=== PATIENT | female | born 1950 | race Two or more races ===

== ENCOUNTER 2019-01-12 15:53 | Emergency (ER) | payer OTHER ==
[~2019-01-12] VITALS: Ht 152.4 cm; Wt 52.6 kg
[2019-01-12] MEDS ORDERED: SYNTHROID100 MCG (16:18)
[2019-01-12] MEDS ORDERED: CETAPHIL237 ML TOP (17:26)
[2019-01-12] MEDS ORDERED: ECZEMA ANTI-I28.3 GM TOP (17:26)
== END 2019-01-12 17:40 | disposition home or self-care (01) ==
LOC: ER 15:53
DX: L20.89 Other atopic dermatitis (principal)

== ENCOUNTER 2019-02-06 09:47 | Outpatient (CLI) | payer OTHER ==
[~2019-02-06 09:47] MED LIST: CETAPHIL237 ML TOP; ECZEMA ANTI-I28.3 GM TOP; SYNTHROID100 MCG
== END 2019-02-06 09:50 | disposition home or self-care (01) ==
LOC: TOM 09:47
DX: R91.8 Other nonspecific abnormal finding of lung field (principal)

== ENCOUNTER 2019-04-15 11:13 | Emergency (ER) | payer OTHER ==
[~2019-04-15] VITALS: Ht 152.4 cm; Wt 51.3 kg
[2019-04-15] MEDS ORDERED: MECLIZINE HCL12.5 MG PO (14:15)
== END 2019-04-15 14:22 | disposition home or self-care (01) ==
LOC: ER 11:13
DX: R42 Dizziness and giddiness (principal)

== ENCOUNTER → 2021-02-11 | Emergency (ER) | payer OTHER ==
[~2021-02-11] VITALS: Ht 152.4 cm; Wt 49.4 kg
[~2021-02-11] MED LIST changes: +HYDROCHLOROTH12.5 MG PO; +MECLIZINE HCL12.5 MG PO; +SYNTHROID88 MCG PO
== END | disposition home or self-care (01) ==
LOC: ER 18:21
DX: I16.0 Hypertensive urgency (principal); I10 Essential (primary) hypertension; R51.9 Headache, unspecified

== ENCOUNTER → 2021-06-30 | Outpatient (CLI) | payer OTHER | END | disposition home or self-care (01) | LOC: TOM 12:31 | PROVIDERS: ATTEND Internal Medicine Pulmonary Disease | DX: R91.1 Solitary pulmonary nodule (principal); J98.11 Atelectasis; R06.02 Shortness of breath ==

== ENCOUNTER 2022-05-24 12:37 | Outpatient (CLI) | payer OTHER ==
[~2022-05-24 12:37] MED LIST changes: +LOSARTAN-HCTZ1 EACH PO; +SYNTHROID75 MCG PO
== END 2022-05-24 12:48 | disposition home or self-care (01) ==
LOC: TOM 12:37
PROVIDERS: ATTEND Internal Medicine
DX: J44.9 Chronic obstructive pulmonary disease, unspecified (principal)

== ENCOUNTER 2022-06-03 07:56 | Outpatient (CLI) | payer OTHER | END 2022-06-03 08:00 | disposition home or self-care (01) | LOC: RX STUDY 07:56 | PROVIDERS: ATTEND Internal Medicine | DX: R13.14 Dysphagia, pharyngoesophageal phase (principal); R13.12 Dysphagia, oropharyngeal phase ==

== ENCOUNTER 2022-08-06 08:54 | Emergency (ER) | payer OTHER ==
[~2022-08-06] VITALS: Ht 152.4 cm; Wt 47.6 kg
== END 2022-08-06 13:10 ==
LOC: ER 08:54
DX: B34.9 Viral infection, unspecified (principal); I10 Essential (primary) hypertension; E03.9 Hypothyroidism, unspecified; Z20.822 Contact with and (suspected) exposure to COVID-19

== ENCOUNTER 2022-11-07 10:37 | Outpatient (CLI) | payer OTHER | END 2022-11-07 10:41 | disposition home or self-care (01) | LOC: SONOGRAMA 10:37 | PROVIDERS: ATTEND Internal Medicine | DX: E04.9 Nontoxic goiter, unspecified (principal); M54.2 Cervicalgia ==

== ENCOUNTER 2023-01-03 09:36 | Outpatient (CLI) | payer OTHER | END 2023-01-03 09:38 | disposition home or self-care (01) | LOC: NUCLEAR 09:36 | PROVIDERS: ATTEND Internal Medicine | DX: M81.0 Age-related osteoporosis without current pathological fracture (principal) ==

== ENCOUNTER 2023-02-18 08:58 | Emergency (ER) | payer OTHER ==
[~2023-02-18] VITALS: Ht 152.4 cm; Wt 47.6 kg
== END 2023-02-18 10:58 | disposition home or self-care (01) ==
LOC: ER 08:58
DX: U07.1 COVID-19 (principal); B34.9 Viral infection, unspecified; R53.81 Other malaise; I10 Essential (primary) hypertension; E03.8 Other specified hypothyroidism

== ENCOUNTER 2023-03-01 11:08 | Outpatient (CLI) | payer OTHER | END 2023-03-01 11:13 | disposition home or self-care (01) | LOC: MRI 11:08 | PROVIDERS: ATTEND Emergency Medicine | DX: M54.12 Radiculopathy, cervical region (principal); M62.838 Other muscle spasm | CPT/HCPCS: 72141 ==

== ENCOUNTER 2023-05-06 07:31 | Emergency (ER) | payer OTHER ==
[~2023-05-06] VITALS: Ht 152.4 cm; Wt 47.6 kg
[2023-05-06] MEDS ORDERED: CLONAZEPAM0.5 MG PO (07:43)
[2023-05-06] MEDS ORDERED: SYNTHROID88 MCG PO (07:43)
[2023-05-06] MEDS ORDERED: TIZANIDINE HCL4 MG PO (07:44)
== END 2023-05-06 12:45 ==
LOC: ER 07:31
PROVIDERS: General Practice
DX: K29.70 Gastritis, unspecified, without bleeding (principal); E03.9 Hypothyroidism, unspecified; I10 Essential (primary) hypertension; F41.8 Other specified anxiety disorders; J32.9 Chronic sinusitis, unspecified; J30.89 Other allergic rhinitis
CPT/HCPCS: 36415; 96365; 99284; J2405; J3490

== ENCOUNTER 2024-06-11 08:09 | Outpatient (CLI) | payer OTHER ==
[~2024-06-11 08:09] MED LIST changes: +CLONAZEPAM0.5 MG PO; +COZAAR50 MG PO; +CRESTOR20 MG PO; +NORVASC10 MG PO; +TIZANIDINE HCL4 MG PO
[2024-06-11 08:59] LABS: HEMATOCRIT 34.4 % (36.0-45.00); HEMOGLOBIN 11.6 g/dL (12.0-15.00); MEAN CORPUSCULAR HEMOGLOBIN 29.5 pg (27.00-32.0); MEAN CORPUSCULAR HGB CONC 33.6 g/dl (32.0-36.0); PLATELET COUNT 201 K/uL (150-450); RED BLOOD COUNT 3.91 M/uL (4.00-6.00); RED CELL DISTRIBUTION WIDTH 13.2 % (11.5-14.5)
[2024-06-11 09:05] LABS: URINE PROT QUANT 24HR 8.7 MG/DL
[2024-06-11 09:22] LABS: URINE PROT QUANT 24 HR 69.6 MG/24HR (42-225)
[2024-06-11 09:39] LABS: ALBUMIN 4.2 gm/dL (3.4-5.0); BILIRUBIN TOTAL 0.44 mg/dL (0.3-1.2); CALCIUM 9.3 mg/dL (8.5-10.1); CREATININE SERUM 0.83 mg/dL (0.55-1.02); GFR 67.57; GLOBULINA 3.9 G/DL (2.4-3.5); POTASSIUM 4.11 mEq/L (3.5-5.1); TOTAL PROTEIN 8.1 gm/dL (6.4-8.2)
[2024-06-11 09:47] LABS: CREATINE CLEARANCE 42.3 ML/MIN (97-137); CREATININE SERUM 0.83 mg/dL (0.6-1.0)
[2024-06-11 12:03] LABS: MANUAL PLATELET COUNT 272
[2024-06-11 12:05] LABS: PLATELET ESTIMATE NORMAL (NORMAL)
[2024-06-12 08:05] LABS: FOLIC ACID > 20.00 ng/ml (4.78-20)
[2024-06-12 15:07] LABS: ERYTHROPOIETIN 14.2 mIU/mL (2.6-18.5)
[2024-06-12 17:06] LABS: hgb a 97.4 % (96.4-98.8); hgb a2 2.6 % (1.8-3.2); hgb f 0 % (0.0-2.0); hgb s 0 % (0.0)
== END 2024-06-11 08:15 | disposition home or self-care (01) ==
LOC: LAB 08:09
PROVIDERS: ATTEND Internal Medicine Hematology & Oncology
DX: Z80.3 Family history of malignant neoplasm of breast (principal); D51.3 Other dietary vitamin B12 deficiency anemia; D63.1 Anemia in chronic kidney disease; N18.4 Chronic kidney disease, stage 4 (severe); I10 Essential (primary) hypertension; E03.8 Other specified hypothyroidism; E78.2 Mixed hyperlipidemia; D50.8 Other iron deficiency anemias; R79.9 Abnormal finding of blood chemistry, unspecified; R74.02 Elevation of levels of lactic acid dehydrogenase [LDH]

== ENCOUNTER 2024-07-15 06:57 | Emergency (ER) | payer OTHER ==
[~2024-07-15] VITALS: Ht 152.4 cm; Wt 46.3 kg
[2024-07-15] MEDS ORDERED: NASAL MIST126 ML NASAL (09:14)
[2024-07-15] MEDS ORDERED: AMOX1TAB5 PO (09:14)
[2024-07-15] MEDS ORDERED: BENZONATATE100 MG PO (09:14)
[2024-07-15] MEDS ORDERED: ACETAMINOPHEN 500 MG GEL..CAP PO ONE (09:15)
[2024-07-15] MEDS ORDERED: BENZONATATE 100 MG CAPSULE PO ONE (09:15)
== END 2024-07-15 09:29 | disposition home or self-care (01) ==
LOC: ER 06:59
DX: J32.9 Chronic sinusitis, unspecified (principal); J02.9 Acute pharyngitis, unspecified; H66.90 Otitis media, unspecified, unspecified ear; I10 Essential (primary) hypertension; E03.8 Other specified hypothyroidism

== ENCOUNTER 2024-09-18 11:13 | Outpatient (CLI) | payer OTHER ==
[~2024-09-18 11:13] MED LIST changes: +AMOX1TAB5 PO; +BENZONATATE100 MG PO; +NASAL MIST126 ML NASAL
== END 2024-09-18 11:21 | disposition home or self-care (01) ==
LOC: MRI 11:13
PROVIDERS: ATTEND Psychiatry & Neurology Clinical Neurophysiology
DX: R51.9 Headache, unspecified (principal); G50.0 Trigeminal neuralgia
CPT/HCPCS: 70551

== ENCOUNTER 2024-10-21 12:46 | Outpatient (CLI) | payer OTHER | END 2024-10-21 12:55 | disposition home or self-care (01) | LOC: RAD 12:46 | DX: Z01.811 Encounter for preprocedural respiratory examination (principal) ==

== ENCOUNTER 2024-11-05 08:42 | Outpatient (CLI) | payer OTHER | END 2024-11-05 09:00 | disposition home or self-care (01) | LOC: TOM 08:42 | DX: R91.1 Solitary pulmonary nodule (principal); J43.9 Emphysema, unspecified | CPT/HCPCS: 71260; Q9965 ==

== ENCOUNTER 2024-12-09 08:46 | Outpatient (CLI) | payer OTHER | END 2024-12-09 08:48 | disposition home or self-care (01) | LOC: RAD 08:46 | PROVIDERS: ATTEND Internal Medicine | DX: R10.2 Pelvic and perineal pain (principal) ==

== ENCOUNTER 2025-07-30 11:54 | Outpatient (CLI) | payer OTHER | END 2025-07-30 11:59 | disposition home or self-care (01) | LOC: MRI 11:54 | PROVIDERS: ATTEND Internal Medicine | DX: M54.42 Lumbago with sciatica, left side (principal) | CPT/HCPCS: 72148 ==

== ENCOUNTER 2025-08-13 13:32 | Outpatient (CLI) | payer OTHER ==
[~2025-08-13 13:32] MED LIST changes: +COZAAR100 MG PO; +CYANOCOBALAMIN5 GM MC; +SYNTHROID100 MCG PO
== END 2025-08-13 13:38 | disposition home or self-care (01) ==
LOC: SONOGRAMA 13:32
DX: E03.9 Hypothyroidism, unspecified (principal); N18.2 Chronic kidney disease, stage 2 (mild)

== ENCOUNTER 2025-08-15 02:34 | Emergency (ER) | payer OTHER ==
[~2025-08-15] VITALS: Ht 152.4 cm; Wt 45.4 kg
[2025-08-15] MEDS ORDERED: ONDANSETRON ODT4 MG PO (04:01)
[2025-08-15] MEDS ORDERED: PEPCID40 MG PO (04:01)
== END 2025-08-15 04:28 ==
LOC: ER 02:34
DX: I10 Essential (primary) hypertension (principal); R11.10 Vomiting, unspecified; R10.9 Unspecified abdominal pain